=== PATIENT | male | born 1985 | race Caucasian/White ===

== ENCOUNTER 2017-10-20 11:09 | Emergency (ER) | payer OTHER ==
[~2017-10-20] VITALS: Ht 167.6 cm; Wt 54.4 kg
[~2017-10-20 11:09] MED LIST: ULTRACET PO
== END 2017-10-20 14:58 | disposition home or self-care (01) ==
LOC: ER 11:09
DX: H60.8X3 Other otitis externa, bilateral (principal); N39.0 Urinary tract infection, site not specified

== ENCOUNTER → 2019-03-16 | Emergency (ER) | payer OTHER ==
[~2019-03-16] VITALS: Ht 167.6 cm; Wt 55.3 kg
== END | disposition home or self-care (01) ==
LOC: ER 21:35
DX: S50.312A Abrasion of left elbow, initial encounter (principal); W18.09XA Striking against other object with subsequent fall, initial encounter; Y93.89 Activity, other specified; Y92.89 Other specified places as the place of occurrence of the external cause; Y99.8 Other external cause status

== ENCOUNTER 2019-07-25 14:23 | Emergency (ER) | payer OTHER ==
[~2019-07-25] VITALS: Ht 165.1 cm; Wt 55.8 kg
== END 2019-07-25 17:12 | disposition home or self-care (01) ==
LOC: ER 14:23
DX: L08.89 Other specified local infections of the skin and subcutaneous tissue (principal)